=== PATIENT | male | born 1995 | race Hispanic/Latino ===

== ENCOUNTER 2018-02-20 05:40 | Emergency (ER) | payer SELFPAY ==
[~2018-02-20] VITALS: Ht 175.3 cm; Wt 72.6 kg
[2018-02-20] MEDS ORDERED: KETOROLAC TROMETHAMINE 60 MG/2 ML VIAL IM ONE ×2 (06:00→07:00)
[2018-02-20 06:48] VITALS: BP 141/75
== END 2018-02-20 06:51 | disposition home or self-care (01) ==
LOC: FSED 05:40
DX: S63.286A Dislocation of proximal interphalangeal joint of right little finger, initial encounter (principal); S51.012A Laceration without foreign body of left elbow, initial encounter; V43.52XA Car driver injured in collision with other type car in traffic accident, initial encounter; Y92.488 Other paved roadways as the place of occurrence of the external cause; F17.210 Nicotine dependence, cigarettes, uncomplicated
CPT/HCPCS: 12001; 26770; 73140; 96372; 99284; J1885